=== PATIENT | female | born 1990 | race Caucasian/White ===

== ENCOUNTER 2018-01-04 06:57 | Emergency (ER) | payer OTHER, MEDICAID ==
[~2018-01-04] VITALS: Ht 162.6 cm; Wt 81.7 kg
[2018-01-04] MEDS ORDERED: CLARITIN10 MG PO (07:17)
[2018-01-04] MEDS ORDERED: AMOXICILLIN 50500 MG PO (07:42)
[2018-01-04] MEDS ORDERED: ULTRAM 50MG TAB50 MG PO (07:42)
[2018-01-04 07:53] VITALS: BP 116/76
== END 2018-01-04 07:54 | disposition home or self-care (01) ==
LOC: M.ERS 06:57
DX: H66.91 Otitis media, unspecified, right ear (principal); J45.909 Unspecified asthma, uncomplicated; Z88.5 Allergy status to narcotic agent

== ENCOUNTER 2018-01-10 17:57 | Emergency (ER) | payer OTHER, MEDICAID ==
[~2018-01-10] VITALS: Ht 162.6 cm; Wt 81.7 kg
[~2018-01-10 17:57] MED LIST: AMOXICILLIN 50500 MG PO; CLARITIN10 MG PO; ULTRAM 50MG TAB50 MG PO
[2018-01-10 17:58] VITALS: BP 135/89
[2018-01-10] MEDS ORDERED: ACETAMINOPHEN-1 EAC1 PO (18:37)
[2018-01-10] MEDS ORDERED: CLEOCIN HCL150 MG PO (18:37)
[2018-01-10] MEDS ORDERED: IBUPROFEN 800800 M1 PO (18:38)
== END 2018-01-10 18:51 | disposition home or self-care (01) ==
LOC: M.ERS 17:57
DX: H66.91 Otitis media, unspecified, right ear (principal); J45.909 Unspecified asthma, uncomplicated; Z88.5 Allergy status to narcotic agent